=== PATIENT | female | born 1960 ===

== ENCOUNTER 2024-06-14 11:15 | Inpatient (IN) | payer OTHER ==
[~2024-06-14] VITALS: Ht 152.4 cm; Wt 77.1 kg
[2024-06-14] MEDS ORDERED: COZAAR100 MG PO (13:02)
[2024-06-14] MEDS ORDERED: SIMVASTATIN5 MG PO (13:02)
[2024-06-14] MEDS ORDERED: HYDROCHLOROTH12.5 M2 PO (13:02)
[2024-06-14] MEDS ORDERED: METFORMIN HCL500 M2 PO (13:02)
[2024-06-14] MEDS ORDERED: GLIMEPIRIDE2 M1 PO (13:03)
[2024-06-14 13:28] VITALS: BP 170/70
[2024-06-14 14:21] LABS: INR 0.94; PARTIAL THROMBOPLASTIN TIME 34.6 SECONDS (22.0-34.0); PROTHROMBIN TIME 10.3 SECONDS (9.0-11.5)
[2024-06-18] MEDS ORDERED: LIDOCAINE HCL 1%/EPINEPHRINE 20ML VIAL IJ ONE (07:07)
[2024-06-18] MEDS ORDERED: CEFTRIAXONE SODIUM 2,000 MG VIAL ONE (07:07)
[2024-06-18] MEDS ORDERED: BUPIVACAINE HCL/Mpf 0.5% 10ML VIAL ONE (07:07)
[2024-06-18] MEDS ORDERED: METRONIDAZOLE/SODIUM CHLORIDE 500 MG/100 ML PIGGYBACK IV ONE (07:08)
[2024-06-18] MEDS ORDERED: SUGAMMADEX SODIUM 200 MG/2 ML VIAL IV ONE (08:21)
[2024-06-18] MEDS ORDERED: MORPHINE SULFATE 4 MG/ML VIAL IV ONE ×2 (10:30→11:15)
[2024-06-18] MEDS ORDERED: ONDANSETRON HCL 2 MG/ML VIAL IV PRN (12:00)
[2024-06-18] MEDS ORDERED: OxyCODONE HCL 5 MG TABLET (ROXICODONE) PO PRN (12:00)
[2024-06-18] MEDS ORDERED: RINGERS SOLUTION,LACTATED 1,000 ML IV SCH (12:00)
[2024-06-18] MEDS ORDERED: ACETAMINOPHEN 500 MG GEL..CAP PO SCH (12:00)
[2024-06-18] MEDS ORDERED: MORPHINE SULFATE 4 MG/ML CARTRIDGE IV PRN (12:00)
[2024-06-18] MEDS ORDERED: FAMOTIDINE/PF 20 MG/2 ML VIAL IV PUSH SCH (12:01)
[2024-06-18] MEDS ORDERED: METRONIDAZOLE/SODIUM CHLORIDE 500 MG/100 ML PIGGYBACK IV SCH (12:01)
[2024-06-18] MEDS ORDERED: LACTOBACILLUS ACIDOPHILUS 1 CAP CAP PO SCH (12:02)
[2024-06-18] MEDS ORDERED: TAMSULOSIN HCL 0.4 MG CAP PO SCH (12:02)
[2024-06-18] MEDS ORDERED: HYOSCYAMINE SULFATE 0.125 MG TAB.SUBL SL SCH (13:00)
[2024-06-18 14:14] VITALS: BP 139/68; O2SAT 95
[2024-06-18 16:32] VITALS: BP 173/79; O2SAT 99
[2024-06-18] MEDS ORDERED: CIPROFLOXACIN IN 5 % DEXTROSE 400 MG/200 ML PIGGYBAG IV SCH ×2 (17:00→21:00)
[2024-06-18] MEDS ORDERED: GABAPENTIN 300 MG CAPSULE PO SCH (17:00)
[2024-06-19] VITALS: BP 115/57; O2SAT 97
[2024-06-19 07:36] LABS: ALBUMIN 2.9 gm/dL (3.4-5.0); CREATININE SERUM 0.95 mg/dL (0.55-1.02); GFR 59.22; MAGNESIUM 1.9 mg/dL (1.8-2.4); PHOSPHOROUS 2.5 mg/dL (2.5-4.9); POTASSIUM 3.63 mEq/L (3.5-5.1)
[2024-06-19 07:45] LABS: HEMATOCRIT 25.7 % (36.0-45.00); MEAN CELL VOLUME 86.2 fL (80.00-100.00); MEAN CORPUSCULAR HGB CONC 34.4 g/dl (32.0-36.0); PLATELET COUNT 189 K/uL (150-450); RED BLOOD COUNT 2.98 M/uL (4.00-6.00); RED CELL DISTRIBUTION WIDTH 13.9 % (11.5-14.5)
[2024-06-19 07:51] LABS: HEMOGLOBIN 8.8 g/dL (12.0-15.00); MEAN CORPUSCULAR HEMOGLOBIN 29.5 pg (27.00-32.0)
[2024-06-19 08:00] VITALS: BP 109/52; O2SAT 99
[2024-06-19] MEDS ORDERED: LOSARTAN POTASSIUM 100 MG TABLET PO SCH (09:00)
[2024-06-19] MEDS ORDERED: HYDROCHLOROTHIAZIDE 12.5 MG CAPSULE PO SCH (09:00)
[2024-06-19 16:00] VITALS: BP 103/53; O2SAT 95
[2024-06-19] MEDS ORDERED: ENOXAPARIN SODIUM 40 MG/0.4 ML SYRINGE SUBCUTANEO SCH (17:00)
[2024-06-19] MEDS ORDERED: SOD FERRIC GLUC COMPLX/SUCROSE 62.5 MG in 0.9 % SODIUM CHLORIDE 50 ML IV SCH (17:18)
[2024-06-19] MEDS ORDERED: SOD FERRIC GLUC COMPLX/SUCROSE 62.5 MG/5 ML AMPUL IV ONE (20:11)
[2024-06-20 00:30] VITALS: BP 111/65; O2SAT 95
[2024-06-20 08:00] VITALS: BP 115/58; O2SAT 97
[2024-06-20] MEDS ORDERED: ENOXAPARIN SODIUM 40 MG/0.4 ML SYRINGE SUBCUTANEO SCH (09:00)
[2024-06-20] MEDS ORDERED: HYOSCYAMINE0.125 M1 SL (11:01)
[2024-06-20] MEDS ORDERED: GABAPENTIN300 MG PO (11:02)
== END 2024-06-20 13:49 | disposition home or self-care (01) | DRG 331 ==
LOC: SURH 06-18 05:28 → O/R 06-18 05:28 → SURH 06-18 10:45
PROVIDERS: ADMIT Surgery; ATTEND Surgery
PROC: 0DTN4ZZ Resection of Sigmoid Colon, Percutaneous Endoscopic Approach (ICD-10-PCS; 2024-06-18)
PROC: 0DNW4ZZ Release Peritoneum, Percutaneous Endoscopic Approach (ICD-10-PCS; 2024-06-18)
PROC: 0DBP4ZZ Excision of Rectum, Percutaneous Endoscopic Approach (ICD-10-PCS; principal; 2024-06-18 10:45)
DX: K57.32 Diverticulitis of large intestine without perforation or abscess without bleeding (principal)